=== PATIENT | female | born 1995 | race Caucasian/White ===

== ENCOUNTER 2021-08-23 19:41 | Emergency (ER) | payer MEDICAID ==
[~2021-08-23] VITALS: Ht 157.5 cm; Wt 87.2 kg
[2021-08-23] MEDS ORDERED: ketorolac trometh inj. 60 MG/2 ML VIAL IM ONE (20:45)
[2021-08-23] MEDS ORDERED: HYDROcodone/acetaminophen 10/325mg tab PO ONE (20:45)
[2021-08-23] MEDS ORDERED: ketorolac trometh. 30mg/ml inj. IM ONE (20:50)
[2021-08-23] MEDS ORDERED: ketorolac trometh. 30mg/ml inj. IV ONE (21:10)
[2021-08-23] MEDS ORDERED: OXYC-145 PO (22:22)
[2021-08-23] MEDS ORDERED: iohexol 300mg/ml 100ml inj. ONE (22:24)
[2021-08-24] MEDS ORDERED: NAPR-56 PO (00:04)
[2021-08-24] MEDS ORDERED: CYCL-1 PO (00:04)
[2021-08-24] MEDS ORDERED: cyclobenzaprine 10mg tablet PO ONE (00:05)
[2021-08-24 00:13] VITALS: BP 127/74
== END 2021-08-24 00:15 | disposition home or self-care (01) ==
LOC: ER 19:42
DX: R07.89 Other chest pain (principal); M54.2 Cervicalgia; M25.561 Pain in right knee; M25.562 Pain in left knee; R06.02 Shortness of breath; R05.9 Cough, unspecified; J45.909 Unspecified asthma, uncomplicated; Z79.899 Other long term (current) drug therapy
CPT/HCPCS: 36415; 71260; 73564; 74177; 82948; 84702; 96374; 99285; J1885; Q9967